=== PATIENT | male | born 1950 | race Caucasian/White ===

== ENCOUNTER → 2016-12-11 | Outpatient (CLI) | payer MEDICARE, OTHER | LOC: RAD 12:17 | PROVIDERS: ATTEND Physician Assistant | DX: R05 Cough (principal) | CPT/HCPCS: 71020 ==

== ENCOUNTER → 2017-01-04 | Outpatient (CLI) | payer MEDICARE, OTHER ==
[2017-01-04 08:48] LABS: ABSOLUTE EOSINOPHILS # (AUTO) 0.2 10^3/uL (0.0-0.6); ABSOLUTE LYMPHOCYTES (AUTO) 1.1 10^3/uL (0.5-4.7); ABSOLUTE MONOCYTES (AUTO) 0.5 10^3/uL (0.1-1.4); BASOPHILS % (AUTO) 1.2 % (0-2); EOSINOPHILS % (AUTO) 4.4 % (0-6); HEMATOCRIT 44.3 % (37.9-51.0); HEMOGLOBIN 15.1 g/dL (13.5-17.0); LYMPHOCYTES % (AUTO) 28.9 % (13-45); MEAN CORPUSCULAR VOLUME 94 fl (80-97); MONOCYTES % (AUTO) 13.5 % (3-13); RED CELL DISTRIBUTION WIDTH 13.7 % (11.5-14.0); WHITE BLOOD COUNT 3.9 10^3/uL (4.0-10.5)
[2017-01-04 09:27] LABS: ALANINE AMINOTRANSFERASE 30 U/L (21-72); ALBUMIN 4.1 g/dL (3.5-5.0); ALKALINE PHOSPHATASE 83 U/L (38-126); ANION GAP 12 (5-19); ASPARTATE AMINO TRANSFERASE 27 U/L (17-59); BILIRUBIN,DIRECT 0.1 mg/dL (0.0-0.4); BILIRUBIN,TOTAL 0.8 mg/dL (0.2-1.3); BLOOD UREA NITROGEN 14 mg/dL (7-20); CALCIUM 9.4 mg/dL (8.4-10.2); CARBON DIOXIDE 26 mmol/L (22-30); CHLORIDE 98 mmol/L (98-107); CREATININE RESULT 0.97 mg/dL (0.52-1.25); GLUCOSE 99 mg/dL (75-110); POTASSIUM 4.7 mmol/L (3.6-5.0); SODIUM 135.7 mmol/L (137-145); TOTAL PROTEIN 7.2 g/dL (6.3-8.2)
== END ==
LOC: OD 08:07
PROVIDERS: ATTEND Internal Medicine
DX: E87.1 Hypo-osmolality and hyponatremia (principal); R19.5 Other fecal abnormalities
CPT/HCPCS: 36415; 80053; 85025

== ENCOUNTER 2020-03-06 19:25 | Emergency (ER) | payer MEDICARE, OTHER ==
[2020-03-06 21:31] LABS: ABSOLUTE EOSINOPHILS # (AUTO) 0.2 10^3/uL (0.0-0.6); ABSOLUTE LYMPHOCYTES (AUTO) 0.9 10^3/uL (0.5-4.7); ABSOLUTE MONOCYTES (AUTO) 0.6 10^3/uL (0.1-1.4); ABSOLUTE NEUT (AUTO) 4.5 10^3/uL (1.7-8.2); BASOPHILS % (AUTO) 0.4 % (0-2); EOSINOPHILS % (AUTO) 2.5 % (0-6); HEMATOCRIT 39.6 % (37.9-51.0); HEMOGLOBIN 13.6 g/dL (13.5-17.0); LYMPHOCYTES % (AUTO) 15.1 % (13-45); MEAN CORPUSCULAR HEMOGLOBIN 31.8 pg (27.0-33.4); MEAN CORPUSCULAR HGB CONC 34.3 g/dL (32.0-36.0); MEAN CORPUSCULAR VOLUME 93 fl (80-97); MONOCYTES % (AUTO) 8.9 % (3-13); PLATELET COUNT 167 10^3/uL (150-450); RED BLOOD COUNT 4.28 10^6/uL (4.35-5.55); RED CELL DISTRIBUTION WIDTH 15.1 % (11.5-14.0); SEGMENTED NEUTROPHILS % (AUTO) 73.1 % (42-78); TOTAL CELLS COUNTED % (AUTO) 100 %; WHITE BLOOD COUNT 6.2 10^3/uL (4.0-10.5)
[2020-03-06 21:37] LABS: APPEARANCE,URINE CLEAR; BILIRUBIN,URINE NEGATIVE (NEGATIVE); COLOR,URINE STRAW; GLUCOSE, URINE NEGATIVE (NEGATIVE); KETONES,URINE NEGATIVE (NEGATIVE); LEUKOCYTE ESTERASE,URINE NEGATIVE (NEGATIVE); NITRITE,URINE NEGATIVE (NEGATIVE); PROTEIN,URINE NEGATIVE (NEGATIVE); URINE SPECIFIC GRAVITY 1.005; UROBILINOGEN,URINE NEGATIVE mg/dL (<2.0)
--- NOTE | 2020-03-06 21:57 | EKG REPORT ---
SEVERITY:- ABNORMAL ECG - ATRIAL-PACED COMPLEXES INFERIOR INFARCT, OLD BORDERLINE PROLONGED QT INTERVAL : Confirmed by: Myrna Uribe MD 06-Mar-2020 21:57:17
[2020-03-06 22:04] LABS: ALKALINE PHOSPHATASE 65 U/L (38-126); ANION GAP 7 (5-19); ASPARTATE AMINO TRANSFERASE 34 U/L (17-59); BILIRUBIN,TOTAL 0.6 mg/dL (0.2-1.3); BLOOD UREA NITROGEN 17 mg/dL (7-20); CALCIUM 8.8 mg/dL (8.4-10.2); CARBON DIOXIDE 26 mmol/L (22-30); CHLORIDE 94 mmol/L (98-107); GLUCOSE 108 mg/dL (75-110); POTASSIUM 4.1 mmol/L (3.6-5.0)
--- NOTE | 2020-03-06 22:33 | ER Document Report ---
ED General - General Chief Complaint: Nausea/Vomiting Stated Complaint: NAUSEA/VOMITING Time Seen by Provider: 03/06/20 21:20 Primary Care Provider: KATYA TORRES MD [Primary Care Provider] - Follow up as needed TRAVEL OUTSIDE OF THE [place] IN LAST 30 DAYS: No - HPI Notes: Patient is a 70-year-old male who presents to the emergency department for evaluation after syncopal episode. Evidently the patient had been hitting golf balls outside. He went to grab his second year of the day. He states he had been hydrating well prior to that. He started feeling dizzy, diaphoretic. He asked for some water. He sat down. Evidently he passed out. He does not remember approximately 20 to 30 minutes of his day surrounding this. The patient was given IV fluids. He states right now he has no symptoms. He denies any associated chest pain, shortness of breath with his syncopal episode. He does state that he has been told his sodium was low in the past. He follows closely with his tree surgeon, but is obtaining a new tree surgeon as he recently moved to [place]. He has an appoint with his tree surgeon in 2 weeks, an appointment with his primary care provider in 3. - Related Data Allergies/Adverse Reactions: oxycodone HCl [From Percocet] Adverse Reaction (Intermediate, Verified 10/21/15 16:13) HOT FLASHES Home Medications: Pravachol 20 mg at bedtime, Brilinta 60 mg twice daily, Ranexa 500 mg twice daily, Protonix 80 mg daily, ropinirole 1 mg at dinner, 1 at bedtime, aspirin 81 mg at bedtime, align probiotic 1 daily, diclofenac topically as needed, flaxseed oil 1 g daily, nitroglycerin spray as needed, Motrin 800 mg 1 every 8 as needed Past Medical History - General Information source: Patient - Social History Smoking Status: Former Smoker Frequency of alcohol use: Occasional Drug Abuse: None Family History: CAD, Hyperlipidemia, Hypertension - Past Medical History Cardiac Medical History: Reports: Hx Coronary Artery Disease, Hx Heart Attack - FEBRUARY 2014, Hx Hypercholesterolemia, Hx Hypertension Pulmonary Medical History: Denies: Hx Asthma, Hx Bronchitis, Hx COPD, Hx Pneumonia Neurological Medical History: Denies: Hx Cerebrovascular Accident, Hx Seizures GI Medical History: Reports: Hx Gastroesophageal Reflux Disease Musculoskeletal Medical History: Reports Hx Arthritis, Reports Hx Gout Past Surgical History: Reports: Hx Cardiac Catheterization, Hx Cardiac Surgery - bypass, Hx Coronary Stent - x2 RCA 2008, Hx Orthopedic Surgery - Left knee arthroscopy, Hx Tonsillectomy - Immunizations Hx Diphtheria, Pertussis, Tetanus Vaccination: Yes Hx Pneumococcal Vaccination: 10/08/13 Review of Systems - Review of Systems Constitutional: See HPI Cardiovascular: See HPI -: Yes All other systems reviewed and negative Physical Exam - Vital signs Vitals: Temp 97.4 F 03/06/20 19:26 - Notes Notes: Vital signs reviewed, please refer to chart. Head is normocephalic, atraumatic. Pupils equal round, reactive to light. Neck is supple without meningismus. Heart is regular rate and rhythm. Lungs are clear to auscultation bilaterally. Abdomen is soft, nontender, normoactive bowel sounds throughout. Extremities without cyanosis, clubbing. Posterior calves are nontender. Peripheral pulses are equal. Skin is warm and dry. Patient is awake, alert, oriented x3. Cranial nerves II - XII are grossly intact without focal neurological deficits. Strength is plus 5 out of 5 bilateral upper and lower extremities. Sensation is intact. Reflexes symmetrical. Intact [id number], rapid alternating movements, [id number]. Course - Re-evaluation Re-evalutation: 03/06/20 23:20 Patient presents to the emergency department for evaluation after syncopal episode. He had laboratory investigations as ordered. He was placed on a monitor. He was hypertensive when EMS picked him up. He was given 500 cc of fluids in the field, felt improved. Laboratory investigations here revealed hyponatremia. The patient states his sodium always runs low. His blood pressure was borderline for a while, but it remained normal limits here. I did give him another liter of fluid. At 2310, I spoke with patient's primary care provider. He advised me that the patient's blood pressure frequently runs low. He also advised me that his sodium runs low, but usually in the 130s. I explained to the patient that this needs to be rechecked and followed up closely. We also talked at length about the fact that he does have some EKG changes. This needs to be followed up, but he has no chest pain, no dyspnea. The last EKG I have for comparison is been sometime ago. he has a negative troponin here today. I will have him follow-up closely with primary care and cardiology. We will give him an outpatient lab slip to have his metabolic panel rechecked on Wednesday. He understands if his symptoms return, or if he develops new or concerning symptoms of any sort, he needs to return immediately to the emergency department for evaluation. - Vital Signs Vital signs: Temp Pulse Resp BP Pulse Ox 98.1 F 15 148/92 H 100 03/06/20 23:01 03/06/20 23:01 03/06/20 22:01 03/06/20 23:01 - Laboratory Result Diagrams: 03/06/20 21:00 03/06/20 21:00 Laboratory results interpreted by me: 03/06/20 03/06/20 21:00 21:00 RBC 4.28 L RDW 15.1 H Sodium 126.9 L Chloride 94 L - EKG Interpretation by Me Additional EKG results interpreted by me: 03/06/20 23:23 Atrial paced with a rate of 60 bpm. Normal axis. IVCD. Borderline prolonged QT interval. Nonspecific ST changes, new lateral T wave inversions in the lateral leads, concerning for strain versus ischemia. Prior study comparison is from October 2015. Discharge - Discharge Clinical Impression: Syncope, Hyponatremia, Abnormal EKG Condition: Stable Disposition: HOME, SELF-CARE Instructions: Syncopal Episode ([facility]), Hyponatremia ([facility]), Electrogram Abnormality ([facility]) Additional Instructions: Your sodium today was 126.9. You do have changes on your EKG, but this is when compared to prior study performed here at [facility], back in October 2015. You need to have your sodium rechecked. Have this drawn on Wednesday, results will go to Dr. Torres. If you have another syncopal episode, develop chest pain or shortness of breath, or any other new or concerning symptoms, please return immediately to the emergency department for evaluation. Forms: Follow-Up Laboratory Testing Referrals: KATYA TORRES MD [Primary Care Provider] - Follow up as needed
[2020-03-06] MEDS ORDERED: NORMAL SALINE 1000 ML 1,000 ML IV ONE (22:34)
[2020-03-06 22:51] LABS: URINE AMPHETAMINES SCREEN NEGATIVE; URINE BARBITURATES SCREEN NEGATIVE; URINE BENZODIAZEPINES SCREEN NEGATIVE; URINE COCAINE SCREEN NEGATIVE; URINE MARIJUANA (THC) SCREEN NEGATIVE; URINE METHADONE SCREEN NEGATIVE; URINE PHENCYCLIDINE SCREEN NEGATIVE
[2020-03-06 23:46] VITALS: BP 169/94
== END 2020-03-06 23:46 | disposition home or self-care (01) ==
LOC: ER 19:25
DX: R55 Syncope and collapse (principal); E87.6 Hypokalemia; R94.31 Abnormal electrocardiogram [ECG] [EKG]; E78.00 Pure hypercholesterolemia, unspecified; I25.10 Atherosclerotic heart disease of native coronary artery without angina pectoris; I10 Essential (primary) hypertension; I25.2 Old myocardial infarction; K21.9 Gastro-esophageal reflux disease without esophagitis; Z79.899 Other long term (current) drug therapy; Z79.02 Long term (current) use of antithrombotics/antiplatelets; Z79.82 Long term (current) use of aspirin; Z95.1 Presence of aortocoronary bypass graft; Z95.5 Presence of coronary angioplasty implant and graft
CPT/HCPCS: 93005; 99284; 96360; 36415; 80307 ×2; 85025; 80053; 81001; 84484; 93010; J7030